=== PATIENT | male | born 1990 | race African-American/Black ===

== ENCOUNTER 2017-06-22 07:53 | Day surgery (SDC) | payer OTHER ==
--- NOTE | 2017-06-21 21:56 | HP ---
PREOPERATIVE HISTORY AND PHYSICAL: DATE OF SURGERY/ADMISSION: 06/22/17 DATE OF OFFICE VISIT/ENCOUNTER: 06/21/17 ATTENDING SURGEON: Jacquelyn Holcomb MD* (dictated by YANDY Crum). PROCEDURE: Right 5th metacarpal closed reduction and pinning. CHIEF COMPLAINT: Right hand 5th metacarpal fracture. 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 He was seen at [facility] in [place] and had x-rays, which showed a markedly angulated fracture of the 5th metacarpal with almost 90 degrees of angulation. Additionally, he has a volar plate fracture of his middle phalanx of the right small finger, which is nondisplaced. He denies any associated numbness or tingling. After review of x -rays and evaluation by Dr. Holcomb, he has consented to proceed with surgical intervention in the form of a right 5th metacarpal closed reduction and pinning. PAST MEDICAL HISTORY: Asthma. PAST SURGICAL HISTORY: Hernia repair at age 9. CURRENT MEDICATIONS: 1. QVAR. 2. Cetirizine HCl. 3. Rescue inhaler. ALLERGIES: No known drug allergies. FAMILY MEDICAL HISTORY: Significant for cancer. 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 He denies tobacco and recreational drug use. Does consume alcohol on regular occasion. REVIEW OF SYSTEMS: General: Negative for fevers, chills, or night sweats. No known anesthesia problems. HEENT: Negative for headache, lightheadedness, or syncopal episodes. Integumentary: Negative for abrasions, lesions, or open wounds. Cardiothoracic: Negative for hypertension, chest pain, palpitations, or edema. Pulmonary: Positive for occasional shortness of breath associated with asthma. Positive for seasonal allergies and hay fever. Negative for chronic cough or COPD. GI: Negative for nausea, vomiting, diarrhea, constipation, or GERD. : Negative for nocturia, urinary frequency, urgency, history of UTIs, or kidney problems. Musculoskeletal: Positive for current complaint. Negative for chronic or intermittent back pain or history of fractures. Neurologic: Negative for paresthesias, numbness, history of seizure , stroke or epilepsy. Endocrine: Negative for diabetes and thyroid issues. Hematologic: Negative for easy bruising, anemia, excessive bleeding, or history of DVT. Infectious Disease: Negative for history of MRSA, hepatitis C, or HIV. PHYSICAL EXAMINATION GENERAL: Well-developed, well-nourished 26-year-old male, in no acute distress. VITAL SIGNS: Height 6 feet 2 inches, weight 175 pounds, pulse rate 72, blood pressure 123/80. HEENT: Normocephalic, atraumatic. Pupils are equal, round, and reactive to light and accommodation. Extraocular movements are intact. Throat is clear. NECK: Supple. No palpable lymph nodes. PULMONARY: Lungs are clear to auscultation bilaterally. No wheezes, rales, or rhonchi. CARDIOVASCULAR: Regular rate and rhythm. S1 and S2. No murmurs, rubs, or gallops. No edema. ABDOMEN: Positive bowel sounds. Soft and nontender. MUSCULOSKELETAL: On exam of the right hand, he has some abrasions on the middle , ring, and small fingers. He has swelling and ecchymosis around the PIP joint of the small finger. Tenderness at the volar aspect of the PIP joint. No rotational deformity with flexion of the finger. There is a more angular deformity of the 5th metacarpal apex dorsal with tenderness as well as swelling on the dorsoulnar aspect of the hand. NEUROLOGIC: Alert and oriented x3. Cranial nerves II through XII are intact. Sensation is intact to light touch. IMAGING STUDIES: X-rays AP, lateral, and oblique of the right hand shows a markedly angulated fracture of the 5th metacarpal and 80 degrees of angulation apex dorsally and a volar plate fracture at the PIP joint. IMPRESSION: Right small finger metacarpal fracture and volar plate fracture. PLAN: The patient is scheduled to undergo a right 5th metacarpal closed reduction and pinning with Dr. Holcomb on 06/22/17. He will return to the office in 10 to 14 days postop for followup and suture removal. A prescription for Orla was e- scribed to the patient's pharmacy for postoperative pain management. YANDY CRUM [id number]/[facility] #: [id number] LATRICE
[~2017-06-22 07:53] MED LIST: Buffered Lidocaine 0.9% SYRIN* 5 ML/SYR SYRINGE INTRADERM ONE
[2017-06-22] MEDS ORDERED: ceFAZolin 2 GM PREMIX (*) 2 GM/50 ML BAG IVPB ONE (08:02)
[2017-06-22] MEDS ORDERED: Buffered Lidocaine 0.9% SYRIN* 5 ML/SYR SYRINGE ONE (08:31)
[2017-06-22] MEDS ORDERED: Lidocaine 1% INJ* 10 MG/ML 30 ML SDV ONE (09:18)
[2017-06-22] MEDS ORDERED: Bupivacaine 0.5% SDV PF* 30 ML VIAL ONE (09:18)
[2017-06-22] MEDS ORDERED: Bupivacaine 0.5% W/EPI SDV* 30 ML VIAL ONE (09:22)
[2017-06-22] MEDS ORDERED: fentaNYL* 50 MCG/ML 2 ML VIAL (100 MCG VIAL) ONE (09:27)
[2017-06-22] MEDS ORDERED: Midazolam* 1 MG/ML 5 ML VIAL (5 MG) ONE (09:32)
[2017-06-22] MEDS ORDERED: oxyCODONE/Acetamin 5/325 MG* TAB PO PRN (09:59)
[2017-06-22] MEDS ORDERED: Ibuprofen TAB* 400 MG PO PRN (09:59)
[2017-06-22 10:41] VITALS: BP 138/70
--- NOTE | 2017-06-23 01:59 | OP ---
CC: Jacquelyn Holcomb MD OPERATIVE NOTE: DATE OF OPERATION: 06/22/17 - [facility] DATE OF : [birth year] SURGEON: Jacquelyn Holcomb MD CAREER CENTER ADVISOR: YANDY Crum ANESTHESIOLOGIST: Alberto Xie MD ANESTHESIA: Axillary block. PRE-OP DIAGNOSIS: Right fifth metacarpal fracture, transverse and mid shaft and displaced. POST-OP DIAGNOSIS: Right fifth metacarpal fracture, transverse and mid shaft and displaced. OPERATIVE PROCEDURE: Closed reduction and percutaneous pinning, right fifth metacarpal fracture. ESTIMATED BLOOD LOSS: Zero. TOURNIQUET TIME: Zero. INDICATION FOR PROCEDURE: Chris is a 26-year-old male, who injured his right hand when he punched a wall. He has a displaced angulated fracture of his fifth metacarpal mid shaft, transverse with about 80 degrees of angulation apex dorsally. He presents for closed reduction and pinning. DESCRIPTION OF PROCEDURE: The patient was brought to the operating room, was given an axillary block anesthetic, and a tourniquet was placed around his right upper arm, but was not used during the procedure. The fracture was reduced with traction and manipulation under the guidance of the C-arm and then a single point 0.045 inch K-wire was driven through the distal fragment across the fracture and into the proximal fragment. This gave perfect alignment of the fracture fragments. The position of the hardware and fracture fragments were checked on the C-arm in the AP and lateral views and found to be satisfactory. The pin was bent and cut and then the pin and fingers were dressed with Xeroform, 4x4, Webril, and an ulnar gutter splint. The patient tolerated the procedure well and was brought to the recovery room in good condition. [id number]/[facility] #: [id number] [facility]
--- NOTE | 2017-06-25 13:28 | RAD ---
INDICATION: Right small metacarpal. No other history is provided COMPARISONS: None relevant TECHNIQUE: Fluoroscopy was provided for a surgical procedure. Total fluoroscopy time is: 1.13 minutes FINDINGS: Spot images demonstrate percutaneous fixation of the fifth metacarpal IMPRESSION: FLUOROSCOPY WAS PROVIDED FOR A SURGICAL PROCEDURE CPT II Codes: 6045F
== END 2017-06-22 10:48 | disposition home or self-care (01) ==
LOC: OREAST 07:53
PROVIDERS: ATTEND Orthopaedic Surgery
DX: S62.326A Displaced fracture of shaft of fifth metacarpal bone, right hand, initial encounter for closed fracture (principal); S63.436A Traumatic rupture of volar plate of right little finger at metacarpophalangeal and interphalangeal joint, initial encounter; W22.8XXA Striking against or struck by other objects, initial encounter; Y92.9 Unspecified place or not applicable; J45.909 Unspecified asthma, uncomplicated
CPT/HCPCS: 76000; C1776; J0690; J2001; J2250; J3010

== ENCOUNTER 2017-07-27 10:26 | Day surgery (SDC) | payer OTHER ==
[~2017-07-27 10:26] MED LIST changes: -Buffered Lidocaine 0.9% SYRIN* 5 ML/SYR SYRINGE INTRADERM ONE; +Lidocaine 1% INJ* 10 MG/ML 30 ML SDV ONE
[2017-07-27] MEDS ORDERED: Lidocaine 1% INJ* 10 MG/ML 30 ML SDV ONE (11:15)
[2017-07-27] MEDS ORDERED: Lidocaine 2% PF * 5 ML VIAL ONE (12:44)
[2017-07-27] MEDS ORDERED: Propofol* 10 MG/ML 20 ML BTL IV PUSH ONE (12:44)
[2017-07-27] MEDS ORDERED: fentaNYL* 50 MCG/ML 2 ML VIAL (100 MCG VIAL) ONE (12:44)
[2017-07-27 13:28] VITALS: BP 128/77
[2017-07-27] MEDS ORDERED: traMADol TAB* 50 MG ONE (13:33)
[2017-07-27] MEDS ORDERED: Acetaminophen TAB* 325 MG ONE (13:33)
--- NOTE | 2017-07-28 04:37 | OP ---
DATE OF OPERATION: 07/27/17 [facility] DATE OF : [birth year]. SURGEON: Jacquelyn Holcomb MD. FITTING ROOM INSPECTOR: YANDY Crum ANESTHESIOLOGIST: Ministerio Waller DO ANESTHESIA: Local MAC. PRE-OP DIAGNOSIS: Status post pinning of the right fifth metacarpal. POST-OP DIAGNOSIS: Status post pinning of the right fifth metacarpal. OPERATIVE PROCEDURE: Hardware removal, right little finger. ESTIMATED BLOOD LOSS: Zero. TOURNIQUET TIME: About 10 minutes. INDICATIONS FOR PROCEDURE: Chris is a 26-year-old male who suffered a fracture of the mid shaft of his right fifth metacarpal. He had a pinning, the pin was overgrown with tissue and I was unable to remove it in the office. He presents for pin removal from the right small finger. DESCRIPTION OF PROCEDURE: The patient was brought to the operating room, was given a sedation anesthetic and a local infiltration of 10 cc of 1% plain lidocaine as a digital block to the right little finger. The skin of his right hand and forearm was prepped and draped in the usual sterile fashion. The hand and forearm were exsanguinated and the tourniquet elevated to 250 mmHg. The incision that I made in the office yesterday was opened and I was able to retrieve the K-wire. The wound was then copiously irrigated with saline and the skin edges were reapproximated with 4-0 nylon suture. The wound was dressed with Xeroform, 4x4, Webril, and Coban. The patient tolerated the procedure well and was brought to the recovery room in good condition. [id number]/[facility] #: [id number] MTDD
== END 2017-07-27 13:54 | disposition home or self-care (01) ==
LOC: OREAST 10:26
PROVIDERS: ATTEND Orthopaedic Surgery
DX: S62.326D Displaced fracture of shaft of fifth metacarpal bone, right hand, subsequent encounter for fracture with routine healing (principal); X58.XXXD Exposure to other specified factors, subsequent encounter; Y92.9 Unspecified place or not applicable; J45.909 Unspecified asthma, uncomplicated; Z87.891 Personal history of nicotine dependence
CPT/HCPCS: 88300; A9270-GY; J2704; J3010